=== PATIENT | female | born 1970 | race Two or more races ===

== ENCOUNTER 2022-01-06 06:38 | Outpatient (CLI) | payer OTHER | END 2022-01-06 06:44 | disposition home or self-care (01) | LOC: LAB 06:38 | PROVIDERS: ATTEND Obstetrics & Gynecology Obstetrics | DX: E55.9 Vitamin D deficiency, unspecified (principal); A64 Unspecified sexually transmitted disease; D64.3 Other sideroblastic anemias; N39.0 Urinary tract infection, site not specified; E03.9 Hypothyroidism, unspecified; I10 Essential (primary) hypertension; R10.2 Pelvic and perineal pain ==

== ENCOUNTER 2022-01-06 07:42 | Outpatient (CLI) | payer OTHER | END 2022-01-06 07:47 | disposition home or self-care (01) | LOC: MAMO-SONO 07:42 | PROVIDERS: ATTEND Obstetrics & Gynecology Obstetrics | DX: Z12.31 Encounter for screening mammogram for malignant neoplasm of breast (principal); N60.01 Solitary cyst of right breast; N60.02 Solitary cyst of left breast; R10.2 Pelvic and perineal pain; D25.1 Intramural leiomyoma of uterus ==

== ENCOUNTER 2022-02-02 10:42 | Outpatient (CLI) | payer OTHER | END 2022-02-02 10:57 | disposition home or self-care (01) | LOC: RAD 10:42 | PROVIDERS: ATTEND Physical Medicine & Rehabilitation Sports Medicine | DX: M25.511 Pain in right shoulder (principal); M25.541 Pain in joints of right hand; M25.542 Pain in joints of left hand ==

== ENCOUNTER 2023-04-07 10:46 | Outpatient (CLI) | payer OTHER | END 2023-04-07 10:50 | disposition home or self-care (01) | LOC: MAMO-SONO 10:46 | PROVIDERS: ATTEND Specialist | DX: D25.2 Subserosal leiomyoma of uterus (principal); Z12.31 Encounter for screening mammogram for malignant neoplasm of breast; N60.01 Solitary cyst of right breast ==

== ENCOUNTER 2024-06-21 10:31 | Outpatient (CLI) | payer OTHER | END 2024-06-21 10:39 | disposition home or self-care (01) | LOC: MAMO-SONO 10:31 | PROVIDERS: ATTEND Specialist | DX: N60.01 Solitary cyst of right breast (principal); N60.02 Solitary cyst of left breast; D25.2 Subserosal leiomyoma of uterus ==